=== PATIENT | male | born 1980 | race Caucasian/White ===

== ENCOUNTER 2020-01-11 22:56 | Inpatient (IN) | payer SELFPAY ==
[2020-01-11 23:01] VITALS: BMI 28.5
[2020-01-12 02:06] VITALS: BP 116/80; PULSE 78; RESP 18; TEMP 36.4; O2SAT 100
[2020-01-12 06:00] VITALS: BP 103/69; PULSE 81; RESP 17; TEMP 36.6; O2SAT 97
[2020-01-12] MEDS: nicotine 21 mg Patch 1 PATCH TRANSDERMA (13:38)
--- NOTE | 2020-01-12 13:45 | PM.NHP ---
Providers/Chief Complaint Admitting Physician: Ben Contreras Chief Complaint: depression HPI NPU History of Present Illness Chief complaint: Help me get off the dopamine the alcohol. History of present illness:Toribio Velazquez is a 39 year old male with a lifelong history of alcohol use who had been clean and sober for 5 months when he began using alcohol and methamphetamine as a self-destructive act after the breakup of a romantic relationship. For the past month he has been using alcohol methamphetamine on a daily basis. He says that he is unable to stop using. He feels that he needs to get back on his Prozac, get clean of the alcohol and methamphetamine, and possibly go to a rehabilitation program it was with this intense that he went to the emergency room and was subsequently admitted to the psychiatric unit. He reports problems of persistent depression since starting to use alcohol and methamphetamine. He feels hopeless and overwhelmed. He has had a number of adverse social events since he started using and does not know how to handle them. He is not thinking clearly. He is irritable. He has vague suicidal thoughts but no intent or plan. He denies the presence of auditory or visual hallucinations. His sleep has been ordered. His energy has been poor. His appetite has been variable. He denies any history of manic symptoms except when using the methamphetamine. his urine drug screen was positive only for amphetamines. Blood alcohol level was below the measurable limit. Mental health history: patient reports that he began using alcohol as a teenager and use it on a regular daily basis variably over his life. This pattern changed approximately 8 months ago. He was hospitalized in a psychiatric unit in [facility] for having suicidal thoughts. He was again using alcohol and methamphetamine on a daily basis. He was in the hospital for 7 days. They started him on Prozac and set him up with follow-up care. He left the hospital, was compliant with medication treatment and eventually was also gainfully employed at a local [employer]. Family psychiatric history : positive for extensive alcohol and substance use. He has had 2 valley members attempt suicide but to his knowledge have not been treated for a specific mental health diagnosis. Social history:the patient grew up in [place]. He is a high school graduate. He has had various local employments. Job he ever had was at [employer] like to because of his peers and paid well. 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 He has never been . He has 2 children ages 14 and 9. He has not seen them for 2 years. Legal history:patient has a 6 arrests in the past 5 years. All for non-violent crimes. These include possession of drug paraphernalia, failure to pay child support, and DWI. Past medical history: allergies: None Medications: None Medical problems: None Surgeries: He fractured his right arm within the past year and has a plate put in his arm to repair the bone. Mental Status Exam: patient is alert interpersonally engaged male appearing approximately his stated age. Eye contact is fair. He sits in a posture facing to the side but is not actually closed. He is believed to be a reliable informant as the information he provides is internally consistent and consistent with that in the chart. However, he does not offer some information that makes him appear in a negative light. Appearance: hygiene is fair; no gross neurological deficits., gait is unremarkable; AIMS=0 Speech: Speech is of normal rate and rhythm and easily understood. Thought processes: Thought processes are abstract. Judgment is adequate for safety. Associations: intact Psychotic processes: There is no indication of guarding or paranoia. There is no attention to the internal stimuli. Auditory and visual hallucinations are denied. Judgment: Insight is fair. Problem solving skills are adequate for safety. Orientation: The patient is oriented to person, place time and situation. Memory: no deficits noted in immediate, intermediate, or remote spheres. Attention: The patient is alert and interpersonally engaged. Language: Verbalizations are coherent. Fund of knowledge: Fund of knowledge is adequate. Affect/Mood: Affect is consistent with a depressed mood. he deniedsuicidal ideation Affective range appropriate. Psychosis: perception unimpaired except through cognitive distortion; reality testing intact. Diagnoses: major depression?recurrent, severe, without psychotic features Alcohol abuse? Methamphetamine abuse?active Assessment: Treatment plan: Due to the psychiatric conditions and treatment listed in the Assessment and Plan - the patient requires continued hospitalization. Will provide a safe and therapeutic environment for patient.. Will continue inpatient treatment to allow for medication adjustment and monitoring. Will continue q15 min safety checks. Will restart his Prozac at 20 mg daily. Monitor patient's mood, sleep, appetite, and behavior closely. Encourage patient to participate in individual and group therapeutic sessions on the diaz. Estimated length of stay 5 days The expected benefits and potential side effects of patient's psychiatric medications were discussed with the patient. The patient understands and consents to treatment.CRITERIA FOR DISCHARGE: stable on medications and continues to not be an imminent risk to self or others. Meds NPU Home Medications Medication Instructions Recorded Confirmed Type fluoxetine [Prozac] 20 mg PO DAILY 01/12/20 01/12/20 History Allergies Allergy/AdvReac Type Severity Reaction Status Date / Time No Known Allergies Allergy Verified 01/11/20 23:14 PFSH NPU PFSH: Family History (Updated 01/11/20 @ 23:38 by Fartun Diaz, ROMULO) Other Alcoholic Social History (Updated 01/11/20 @ 23:39 by Fartun Diaz RN) Smoking and tobacco status: current every day smoker cigarettes Packs smoked per day: 2 Number of cigarettes per day: >20 Second hand smoke exposure: Yes (patient smokes daily) Vitals/I&O/Wt Last Vital Signs Temp 97.8 F 01/12/20 06:00 Pulse 81 01/12/20 06:00 Resp 17 01/12/20 06:00 BP 103/69 01/12/20 06:00 Pulse Ox 97 01/12/20 06:00 Weight last 48 hrs Weight 92.986 kg Involuntary Hold Information 96 Hour Hold: 96 Hour Involuntary Admission: No Attestations NPU Medical Necessity Statement*: patient will remain in the hospital another 3-4 nights for coordination of care and to assess see intolerance of medication changes. Coding Level of Care Code Acute Records Management Associate for Lamont Hillman
[2020-01-12 14:00] VITALS: BP 106/74; PULSE 82; RESP 20; TEMP 36.7; O2SAT 97
[2020-01-12 20:25] VITALS: BP 133/86; PULSE 84; RESP 17; TEMP 36.8; O2SAT 99
[2020-01-12] MEDS: trazodone 50 mg Tablet PO (20:48)
--- NOTE | 2020-01-12 23:17 | PC.NURSE ---
Pt requesting sleeping medication during bedtime med pass. Medicated with Trazadone 50mgs po per prn order. Appears to be resting comfortably with eyes closed. Respirations even and unlabored
[2020-01-13 06:00] VITALS: BP 113/79; PULSE 77; RESP 18; TEMP 36.4; O2SAT 99
--- NOTE | 2020-01-13 10:33 | P.PN_ITS ---
Subjective NPU Subjective: Interval history: patient reports that he is feeling better today. He is making plans on his potential destination for discharge. Transportation is difficult issue as he lives 4 hours away. Otherwise free of suicidal or homicidal ideation. He is tolerating medications well. Mental Status Exam MSE Comments: Discharge Mental Status Exam: Appearance: hygiene is good; no gross neurological deficits., gait is unremarkable; AIMS=0 Speech: Speech is of normal rate and rhythm and easily understood. Thought processes: Thought processes are abstract. Judgment is adequate for safety. Associations: intact Psychotic processes: There is no indication of guarding or paranoia. There is no attention to the internal stimuli. Auditory and visual hallucinations are denied. Judgment: Insight is fair. Problem solving skills are adequate for safety. Orientation: The patient is oriented to person, place time and situation. Memory: no deficits noted in immediate, intermediate, or remote spheres. Attention: The patient is alert and interpersonally engaged. Language: Verbalizations are coherent. Fund of knowledge: Fund of knowledge is adequate. Affect/Mood: Affect is consistent with a euthymic mood. denied suicidal ideation Affective range is appropriate. Psychosis: perception unimpaired except through cognitive distortion; reality testing intact. Cognition: Patient Appearance: Appropriate Patient Orientation (long list): Person, Place, Time, Name, Age, Birthday, Day of Month, Day of Week, Month, Time of Day and Year Comprehension Ability: No Impairment Hallucination Type: None Thought Process: Appropriate Affect: Affect Description: Appropriate Behavior: Patient Behavior: Appropriate Speech Pattern: Appropriate Vitals/I&O/Wt Last Vital Signs Temp 97.6 F 01/13/20 06:00 Pulse 77 01/13/20 06:00 Resp 18 01/13/20 06:00 BP 113/79 01/13/20 06:00 Pulse Ox 99 01/13/20 06:00 Weight last 48 hrs Weight 92.986 kg A&P Additional A&P Information major depression?recurrent, severe, without psychotic features Alcohol abuse? Methamphetamine abuse?active Assessment: Treatment plan: Due to the psychiatric conditions and treatment listed in the Assessment and Plan - the patient requires continued hospitalization. Will provide a safe and therapeutic environment for patient.. Will continue inpatient treatment to allow for medication adjustment and monit oring. Will continue q15 min safety checks. Will continue Prozac at 30 mg daily. Involuntary Hold Information 96 Hour Hold: 96 Hour Involuntary Admission: No Attestations NPU Medical Necessity Statement*: patient will remain in the hospital another 1-2 nights while reassess medication efficacy and safety. Coding Level of Care Code Acute Financial Coordinator for Lamont Hillman
[2020-01-13] MEDS: fluoxetine 10 mg Capsule 30 MG PO (11:16)
[2020-01-13 14:00] VITALS: BP 99/71; PULSE 87; RESP 18; TEMP 36.6; O2SAT 97
[2020-01-13] MEDS: doxepin 50 mg Capsule PO (20:28)
[2020-01-13 22:00] VITALS: BP 121/72; PULSE 90; RESP 18; TEMP 36.7; O2SAT 98
[2020-01-14 06:00] VITALS: BP 99/64; PULSE 84; RESP 18; TEMP 36.7; O2SAT 98
[2020-01-14] MEDS: fluoxetine 10 mg Capsule 30 MG PO (08:21)
[2020-01-14 09:15] VITALS: BP 99/64; PULSE 84; RESP 18; TEMP 36.7; O2SAT 98
--- NOTE | 2020-01-15 14:34 | P.DS_ITS ---
Reason for Visit Reason for Visit: Reason For Visit: depression Hospital Course Discharge Summary Chief complaint: Help me get off the dope and the alcohol. History of present illness:Toribio Velazquez is a 39 year old male with a lifelong history of alcohol use who had been clean and sober for 5 years when he began using alcohol and methamphetamine as a self-destructive act after the breakup of a romantic relationship. For the past month he has been using alcohol and methamphetamine on a daily basis. He says that he is unable to stop using. He feels that he needs to get back on his Prozac, get clean of the alcohol and methamphetamine, and possibly go to a rehabilitation program it was with this intense that he went to the emergency room and was subsequently admitted to the psychiatric unit. He reports problems of persistent depression since starting to use alcohol and methamphetamine. He feels hopeless and overwhelmed. He has had a number of adverse social events since he started using and does not know how to handle them. He is not thinking clearly. He is irritable. He has vague suicidal thoughts but no intent or plan. He denies the presence of auditory or visual hallucinations. His sleep has been ordered. His energy has been poor. His appetite has been variable. He denies any history of manic symptoms except when using the methamphetamine. his urine drug screen was positive only for amphetamines. Blood alcohol level was below the measurable limit. Mental health history: patient reports that he began using alcohol as a teenager and use it on a regular daily basis variably over his life. This pattern changed approximately 8 months ago. He was hospitalized in a psychiatric unit in [facility] for having suicidal thoughts. He was again using alcohol and methamphetamine on a daily basis. He was in the hospital for 7 days. They started him on Prozac and set him up with follow-up care. He left the hospital, was compliant with medication treatment and eventually was also gainfully employed at a local [employer]. Diagnoses: major depression?recurrent, severe, without psychotic features Alcohol abuse? Methamphetamine abuse?active Assessment: Treatment plan: Due to the psychiatric conditions and treatment listed in the Assessment and Plan - the patient requires continued hospitalization. Will provide a safe and therapeutic environment for patient.. Will continue inpatient treatment to allow for medication adjustment and monitoring. Will continue q15 min safety checks. Will restart his Prozac at 20 mg daily. hospital day #2: Patient tolerated initiation of the Prozac. He had no problems with the staff and is sober and clean state. He uses that time to utilize director social service to arrange or at least acquire potential sources for individual psychotherapy and rehabilitation. We discussed both. Given his history, it appears that ongoing individual counseling and psychotherapy will likely be more beneficial to him as he was able to remain clean and sober for 5 years without the benefit of a formal sobriety program. However one may be more available to the other at this point. Involuntary Hold Information 96 Hour Hold: 96 Hour Involuntary Admission: No Mental Status Exam MSE Comments: Discharge Mental Status Exam: Appearance: hygiene is good; no gross neurological deficits., gait is unremarkable; AIMS=0 Speech: Speech is of normal rate and rhythm and easily understood. Thought processes: Thought processes are abstract. Judgment is adequate for safety. Associations: intact Psychotic processes: There is no indication of guarding or paranoia. There is no attention to the internal stimuli. Auditory and visual hallucinations are denied. Judgment: Insight is fair. Problem solving skills are adequate for safety. Orientation: The patient is oriented to person, place time and situation. Memory: no deficits noted in immediate, intermediate, or remote spheres. Attention: The patient is alert and interpersonally engaged. Language: Verbalizations are coherent. Fund of knowledge: Fund of knowledge is adequate. Affect/Mood: Affect is consistent with a euthymic mood. denied suicidal ideation Affective range is appropriate. Psychosis: perception unimpaired except through cognitive distortion; reality testing intact. Discharge Data Vitals: Last Vital Signs Temp 98.0 F 01/14/20 09:15 Pulse 84 01/14/20 09:15 Resp 18 01/14/20 09:15 BP 99/64 01/14/20 09:15 Pulse Ox 98 01/14/20 09:15 Discharge Plan Discharge Patient Disposition: Home, Self-Care Condition: Stable Prescriptions: New fluoxetine 10 mg Capsule 30 mg PO DAILY Qty: 30 RF: 4 Discontinued fluoxetine [Prozac] 20 mg Capsule 20 mg PO DAILY RF: 0 Discharge Orders: Discharge Order (Routine); Ordered 01/14/20 Ordered By: Enoc Lopez Discharge Diet: Regular Discharge Activity: Resume usual activity Patient Instructions: Fluoxetine (By mouth) Activity Restrictions/Additional Instructions: 1. For follow-up for Mental Health Services: [address], [address] [facility] Toll Free SundayJanuary 18 @ 11:00 a.m. with Maco Henderson for individual therapy February 25 @ 9:00 a.m. with Vicki Le for psychiatric medication management. Primary Care, Behavioral Health, Dental Sunday-Sunday ? 8 a.m. ? 6 p.m Sunday & Sunday ? closed After Hours and Holidays Assistance Primary Care/Dental: and wait for prompt and Press ?5? Behavioral Health: Press ?1? or dial 2. For drug and alcohol rehab: * [facility] [place] for Residential Treatment. Services Offered -Social Setting, Detoxification 21/05, SATOP, Anger ManagementGroup, Domestic Violence, Prevention Group, Drug Screening Residential Treatment: [facility], Outpatient Counseling, Daycare Services Contact Information [address] [place] [address] Toll-Free (Need Assistance 21/05 Call numbers above) Front Office Hours Sunday-Sunday 8:00am ? 5:00pm * [facility] for Residential Treatment. contact information: [address] [place] NO BED currently available at [facility]. You may check back January 27. Discharge Date/Time: 01/14/20 12:33 Discharge Attestations NPU Time Spent in Discharge Care*: greater than 30 min Coding Level of Care Code Acute Industrial Maintenance Manager for Chg Kady
== END 2020-01-14 12:33 | disposition home or self-care (01) | DRG 885 ==
DX: F33.9 Major depressive disorder, recurrent, unspecified (principal); F10.10 Alcohol abuse, uncomplicated; F15.10 Other stimulant abuse, uncomplicated; F17.210 Nicotine dependence, cigarettes, uncomplicated; Z79.891 Long term (current) use of opiate analgesic
CPT/HCPCS: 12345